=== PATIENT | female | born 1965 | race Caucasian/White ===

== ENCOUNTER → 2016-07-01 | Outpatient (CLI) | payer BC ==
--- NOTE | 2016-07-01 18:17 | MA ---
Screening Digital Mammogram, With iCAD July 01, 2016 Indication: Routine screening. Technique: Standard cephalocaudal and mediolateral oblique projections are obtained. This examinati on was processed with the [employer] computer-aided detection system. Comparison: June 2015, April 2014, April 2013, and January 2011. Breast Density: Type C. Findings: CAD was reviewed. No suspicious microcalcifications, mass, or architectural distortion. Impression: Negative mammogram. BI-RADS 1. Recommendation: Routine screening is recommended in one year, as long as physical examination is stephon ign, in this patient with moderately dense breast parenchyma. [facility] will send a result letter to the patient. Negative mammography should not preclude additional workup of a clinically suspicious finding. The patient's information is entered into a reminder system with a target due date for her next mammo gram.
== END ==
LOC: BRMIMAGING 14:23
DX: Z12.31 Encounter for screening mammogram for malignant neoplasm of breast (principal)
CPT/HCPCS: G0202

== ENCOUNTER → 2016-07-15 | Outpatient (CLI) | payer BC ==
--- NOTE | 2016-07-15 18:13 | DX ---
DEXA Bone Mineral Densitometry Clinical Indications: Postmenopausal, omeprazole, screening for osteoporosis Comparison: July 07, 2005 Technique: Bone Mineral Densitometry (BMD) by Dual Energy X-Ray Absorptiometry (DEXA) was performed utilizing the [employer] scanner. The lumbar spine was evaluated in the AP projection. The bilat eral hips and forearm were evaluated in the AP projection. Vertebral fracture assessment was also pe rformed. AP Lumbar Spine: The L1, L2, L3 and L4 vertebral bodies were evaluated. BMD: 1.183 gm/cm2 T-score: -0.1 SD Z-score: 0.4 SD No significant change. AP Left Hip: Total BMD: 1.105 gm/cm2 T-score: 0.8 SD Z-score: 1.3 SD No significant change AP Right Hip: Total BMD: 1.079 gm/cm2 T-score: 0.6 SD Z-score: 1.1 SD AP Left Forearm, 06/23: BMD: 0.851 gm/cm2 T-score: -0.3 SD Z-score: 0 SD Vertebral Fracture Assessment: No significant fracture deformity. No prevertebral aortic calcificati on, significant marginal bone spurring, facet arthrosis, or intrinsic vertebral body sclerosis that would effect the accuracy of the lumbar spine BMD measurement. Conclusion: Considering the lowest measured site, the patient is normal and at low risk for fracture . The ten year FRAX risk for any major osteoporotic fracture is 4.2% and for a hip fracture is 0%. To prevent osteoporosis and to promote the patient's bone density, the following recommendations shou ld be considered: 1. Pursue a regular regimen of weightbearing and muscle strengthening exercises in order to reduce t he risk of falls and fractures (as tolerated by the patient's general medical condition). 2. Ensure that daily dietary calcium uptake is maximized. 3. Consider checking the serum vitamin D level. Ensure that intake of vitamin D is 600 IU per day (fo r all ages through 70) . 4. Consider follow-up DEXA scan in 3-4 years to assess the rate of bone loss in this patient.
== END ==
LOC: BRMIMAGING 14:55
PROVIDERS: ATTEND Family Medicine
DX: Z13.820 Encounter for screening for osteoporosis (principal)

== ENCOUNTER → 2017-08-09 | Outpatient (CLI) | payer BC, OTHER | LOC: BRMIMAGING 13:16 | PROVIDERS: ATTEND Family Medicine | DX: Z12.31 Encounter for screening mammogram for malignant neoplasm of breast (principal) ==